=== PATIENT | female | born 1940 | race American Indian/Alaskan Native ===

== ENCOUNTER 2020-05-23 13:11 | Emergency (ER) | payer MEDICARE, OTHER ==
--- NOTE | 2020-05-23 14:25 | Emergency Department Report ---
ED Palpitations HPI - General Chief Complaint: Arrhythmia/Palpitations Stated Complaint: SVT Time Seen by Provider: 05/23/20 14:03 Source: patient Mode of arrival: Stretcher Limitations: No Limitations - History of Present Illness Initial Comments: CC: "heart racing" HPI: Mrs. Palacio is a 79-year-old female with history of SVT, hypertension, mitral valve prolapse, glaucoma who presents with rapid heart racing sudden onset this morning. She took her pulse. She realized her pulse was extremely fast. EMS initially treated SVT with vagal maneuver carotid massage. Secondly after 6 mg of adenosine, SVT was aborted. Patient is symptom-free now. She did not have preceding chest pain shortness of breath. No syncope. 1 year ago she was evaluated for SVT and treated at [facility]. No known cardiomyopathy or coronary artery disease. She is not followed by a hearing health technician. She takes Lopressor and Pradaxa. She is closely followed by her PCP. MD Complaint: rapid heart beat, "heart racing" -: Sudden Context: occured during rest Arrythmia History: SVT Associated Symptoms: denies other symptoms Treatments Prior to Arrival: vagal maneuvers, adenosine - Related Data Home Medications Medication Instructions Recorded Confirmed Last Taken Latanoprost 0.005% 12/27/13 12/27/13 Unknown Loteprednol Etabonate [Lotemax 12/27/13 12/27/13 Unknown 0.5%] propranoloL [Inderal] 12/27/13 12/27/13 Unknown Previous Rx's Medication Instructions Recorded Last Taken Type Gentamicin 0.3% Ophth Soln 1 drops OP Q4H #1 bottle 12/27/13 Unknown Rx Cyclobenzaprine HCl [Flexeril 5 MG 5 mg PO BID #10 tab 07/22/16 Unknown Rx TAB] Ibuprofen [Motrin 600 MG tab] 600 mg PO Q8H PRN #20 tablet 07/22/16 Unknown Rx Allergies Allergy/AdvReac Type Severity Reaction Status Date / Time azithromycin Allergy Rash Verified 12/27/13 21:15 Sulfa (Sulfonamide Allergy Rash Verified 12/27/13 21:15 Antibiotics) ED Review of Systems ROS: Stated complaint: SVT Other details as noted in HPI Comment: All other systems reviewed and negative Constitutional: denies: fever, malaise Respiratory: denies: cough, shortness of breath Cardiovascular: palpitations. denies: chest pain ED Past Medical Hx - Past Medical History Previous Medical History?: Yes Hx Hypertension: Yes Additional medical history: MVP, glucoma, SVT - Surgical History Past Surgical History?: Yes Additional Surgical History: back, cataract removed - Social History Smoking Status: Never Smoker Substance Use Type: None - Medications Home Medications: Home Medications Medication Instructions Recorded Confirmed Last Taken Type Gentamicin 0.3% Ophth Soln 1 drops OP Q4H #1 bottle 12/27/13 Unknown Rx Latanoprost 0.005% 12/27/13 12/27/13 Unknown History Loteprednol Etabonate [Lotemax 12/27/13 12/27/13 Unknown History 0.5%] propranoloL [Inderal] 12/27/13 12/27/13 Unknown History Cyclobenzaprine HCl [Flexeril 5 MG 5 mg PO BID #10 tab 07/22/16 Unknown Rx TAB] Ibuprofen [Motrin 600 MG tab] 600 mg PO Q8H PRN #20 tablet 07/22/16 Unknown Rx ED Physical Exam - General Limitations: No Limitations General appearance: alert, in no apparent distress, other (Patient looks well, comfortable, healthy she looks younger than her stated age) - Head Head exam: Present: atraumatic, normocephalic - Eye Eye exam: Present: normal appearance - ENT ENT exam: Present: mucous membranes moist - Neck Neck exam: Present: normal inspection, full ROM - Respiratory Respiratory exam: Present: normal lung sounds bilaterally. Absent: respiratory distress, wheezes, rales, rhonchi - Cardiovascular Cardiovascular Exam: Present: regular rate, normal rhythm, normal heart sounds. Absent: systolic murmur, diastolic murmur, rubs, gallop - GI/Abdominal GI/Abdominal exam: Present: soft, normal bowel sounds. Absent: distended, tenderness, guarding, rebound - Extremities Exam Extremities exam: Present: normal inspection - Neurological Exam Neurological exam: Present: alert, oriented X3 - Psychiatric Psychiatric exam: Present: normal affect, normal mood - Skin Skin exam: Present: warm, dry, intact, normal color. Absent: rash ED Course Vital Signs 05/23/20 05/23/20 05/23/20 14:08 16:08 16:10 Temperature 97.8 F Pulse Rate 76 65 71 Respiratory 16 19 17 Rate Blood Pressure 135/73 Blood Pressure 118/60 124/83 [Left] O2 Sat by Pulse 98 98 97 Oximetry ED Medical Decision Making - Lab Data Result diagrams: 05/23/20 14:51 05/23/20 14:51 - EKG Data 05/23/20 15:08 EKG obtained 1441 Normal sinus rhythm rate 70 bpm normal axis normal QTC no ST elevation T wave inversions in the anterior leads - Medical Decision Making Mrs. 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 She observed on monitor for 2 hours here in the emergency department. CBC chemistry EKG magnesium and phosphorus all unremarka ble. She will follow with her primary physician next available appointment. She is discharged home in stable condition Critical care attestation.: If time is entered above; I have spent that time in minutes in the direct care of this critically ill patient, excluding procedure time. ED Disposition Clinical Impression: SVT (supraventricular tachycardia) Disposition: - TO HOME OR SELFCARE Is pt being admited?: No Does the pt Need Aspirin: No Condition: Stable Instructions: Supraventricular Tachycardia (ED) Additional Instructions: Please contact your primary physician. Please inform your primary physician that you were treated and evaluated in the emergency department for SVT. Referrals: PRIMARY CAREMD [Referring] - 3-5 Days
[2020-05-23 15:03] LABS: Basophils % (Auto) 0.5 % (0.0-1.8); Eosinophils % (Auto) 0.3 % (0.0-4.3); Hematocrit 35.3 % (30.3-42.9); Hemoglobin 11.7 gm/dl (10.1-14.3); Lymphocytes # (Auto) 1.3 K/mm3 (1.2-5.4); Lymphocytes % (Auto) 18.2 % (13.4-35.0); Mean Corpuscular HGB Conc 33 % (30-34); Mean Corpuscular Volume 89 fl (79-97); Monocytes # (Auto) 0.5 K/mm3 (0.0-0.8); Monocytes % (Auto) 6.9 % (0.0-7.3); Platelet Count 206 K/mm3 (140-440); Red Blood Count 3.98 M/mm3 (3.65-5.03); Red Cell Distribution Width 11.9 % (13.2-15.2)
[2020-05-23 16:10] VITALS: BP 124/83
[2020-05-23 16:29] LABS: BUN/Creatinine Ratio 17; Blood Urea Nitrogen 12 mg/dL (7-17); Calcium 9.5 mg/dL (8.4-10.2); Hemolysis Index 15
== END 2020-05-23 17:16 | disposition home or self-care (01) ==
LOC: ED 13:11
DX: I47.1 Supraventricular tachycardia (principal); I10 Essential (primary) hypertension; Z98.890 Other specified postprocedural states; Z79.899 Other long term (current) drug therapy; Z79.1 Long term (current) use of non-steroidal anti-inflammatories (NSAID); Z88.1 Allergy status to other antibiotic agents; Z88.2 Allergy status to sulfonamides
CPT/HCPCS: 36415; 80048; 83735; 84100; 85025; 93005